=== PATIENT | female | born 2005 | race Caucasian/White ===

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

== ENCOUNTER 2023-03-10 13:58 | Emergency (ER) | payer BC ==
[2023-03-10 14:02] VITALS: TEMP 98.3
[2023-03-10] MEDS ORDERED: SODIUM CHLORIDE 0.9% 1,000 ML IV STA (14:27)
[2023-03-10] MEDS ORDERED: ASPIRIN 81 MG PO STA (14:27)
[2023-03-10] MEDS ORDERED: KETOROLAC 15 MG/ML 1 ML VIAL IVP STA (14:28)
[2023-03-10] MEDS ORDERED: LORazepam 0.5 MG TAB PO STA (14:28)
--- NOTE | 2023-03-10 14:51 | XR ---
EXAMINATION TYPE: XR chest 2V DATE OF EXAM: 03/10/2023 2:47 PM COMPARISON: Chest radiographs from 02/05/2018 TECHNIQUE: XR chest 2V Frontal and lateral views of the chest. CLINICAL INDICATION:Female, 17 years old with history of Chest Pain; FINDINGS: Lungs/Pleura: There is no evidence of pleural effusion, focal consolidation, or pneumothorax. Pulmonary vascularity: Unremarkable. Heart/mediastinum: Cardiomediastinal silhouette is unremarkable. Musculoskeletal: No acute osseous pathology. IMPRESSION: No acute cardiopulmonary disease/process.
--- NOTE | 2023-03-10 15:08 | ED ---
General Adult HPI - General Chief complaint: Chest Pain Stated complaint: Sent from urgent care Time Seen by Provider: 03/10/23 14:11 Source: patient, RN notes reviewed, old records reviewed Mode of arrival: ambulatory Limitations: no limitations - History of Present Illness Initial comments: Patient is a 17-year-old female who presents emergency Department complaining of chest pain, tightness associated with pleuritic shortness of breath. Does have a history of anxiety. Has a family history of cardiac disease as well as early- onset blood clots. Blood clots have occurred in her twin sister. She has been genetically tested and does not have the same gene makes her prone to blood clotting. However she does present over concern for this chest discomfort that started yesterday. It is worse with movement of her arms and torso. Worse on palpation. States it as substernal with radiation over bilateral ribs to both sides. Denies any trauma or fall. Endorses shortness of breath secondary to the pain, as it does hurt worse when she takes a deep breath in. Denies any nausea, vomiting. Does have a history of acid reflux and attempted to treat it with Tums without any relief. No known palliative or provocative factors. Denies any abdominal pain, diarrhea. Denies any fevers, chills, cough. Has no other acute complaints at this time. Presents over concern for chest pain. Does have a history of anxiety. Was sent from urgent care for further evaluation. - Related Data Previous Rx's Medication Instructions Recorded Acetaminophen Tab [Tylenol Tab] 1,000 mg PO Q6HR PRN #30 tablet 08/03/21 Ibuprofen [Motrin] 600 mg PO Q8HR PRN #30 tab 08/03/21 Simethicone [Gas-X] 125 mg PO AC-TID PRN #20 cap 08/03/21 Naproxen Sodium [Anaprox DS] 550 mg PO Q12HR PRN #30 tab 02/12/22 LORazepam [Ativan] 0.5 mg PO DAILY PRN 3 Days #3 tab 03/10/23 Allergies Allergy/AdvReac Type Severity Reaction Status Date / Time No Known Allergies Allergy Verified 03/10/23 14:02 Review of Systems ROS Statement: Those systems with pertinent positive or pertinent negative responses have been documented in the HPI. Review of Systems: CONST: Denies fever EYES: Denies blurry vision ENT: Denies nasal congestion C/V: Endorses chest pain RESP: Denies shortness of breath GI: Denies abdominal pain : Denies dysuria SKIN: Denies rash. MSK: Denies joint pain. NEURO: Denies headache ROS Other: All systems not noted in ROS Statement are negative. Past Medical History Past Medical History: No Reported History History of Any Multi-Drug Resistant Organisms: None Reported Past Surgical History: Appendectomy, Orthopedic Surgery Additional Past Surgical History / Comment(s): wisdom teeth, knee Past Anesthesia/Blood Transfusion Reactions: No Reported Reaction Past Psychological History: No Psychological Hx Reported Smoking Status: Never smoker Past Alcohol Use History: None Reported Past Drug Use History: None Reported - Past Family History Mother Family Medical History: AFIB, Blood Disorder Additional Family Medical History / Comment(s): inherited blood clotting disorder , prothrombin [id number], ovarian cysts Father Family Medical History: No Reported History General Exam - General Exam Comments Initial Comments: General: Appears anxious HEAD: Normal with no signs of head trauma. EYES: PERRLA, EOMI, conjunctiva normal, no discharge. ENT: Hearing grossly intact, normal oropharynx. RESPIRATORY: Clear breath sounds bilaterally. No wheezes, rales, or rhonchi. C/V: Tachycardic with a regular rhythm.. S1 and S2 auscultated, no edema, peripheral pulses 2+ and intact throughout. Chest pain is reproducible on palpation over the sternum and the ribs on the right. ABD: Abd is soft, nontender, nondistended EXT: Normal range of motion, no obvious deformity SKIN: No rashes or lesions observed on exposed skin. NEURO: Alert and oriented 4. Limitations: no limitations Course Vital Signs 03/10/23 03/10/23 03/10/23 14:00 14:14 14:30 Temperature 98.3 F Pulse Rate 123 H 76 65 Respiratory 20 15 16 Rate Blood Pressure 145/95 O2 Sat by Pulse 99 98 97 Oximetry 03/10/23 03/10/23 03/10/23 15:00 15:30 16:00 Temperature Pulse Rate 75 71 72 Respiratory 16 11 L 15 Rate Blood Pressure O2 Sat by Pulse 97 98 96 Oximetry 03/10/23 03/10/23 03/10/23 16:30 16:51 17:00 Temperature Pulse Rate 76 75 78 Respiratory 24 18 18 Rate Blood Pressure 153/81 153/81 O2 Sat by Pulse 97 98 97 Oximetry 03/10/23 17:30 Temperature Pulse Rate 78 Respiratory 12 Rate Blood Pressure 163/76 O2 Sat by Pulse 96 Oximetry Medical Decision Making - Medical Decision Making Was pt. sent in by a medical professional or institution ([facility], [facility], urgent care, hospital, or detention...) When possible be specific @ -Sent in by urgent care for further evaluation of a concern for symptoms Did you speak to anyone other than the patient for history (EMS, parent, family, police, friend...)? What history was obtained from this source @ -Spoke with patient's mother who eventually presents at bedside endorses the patient does have a history of anxiety and has been under more stress lately with school as well as family stressors. Did you review nursing and triage notes (agree or disagree)? Why? @ -I reviewed and agree with nursing and triage notes Were old charts reviewed (outside hosp., previous admission, EMS record, old EKG, old radiological studies, urgent care reports/EKG's, detention records)? Report findings @ -No old charts were reviewed Differential Diagnosis (chest pain, altered mental status, abdominal pain women, abdominal pain men, vaginal bleeding, weakness, fever, dyspnea, syncope, headache, dizziness, GI bleed, back pain, seizure, CVA, palpatations, mental health, musculoskeletal)? @ -Differential Chest Pain: Stable Angina, Anxiety, Unstable Angina, STEMI, NSTEMI Aortic Dissection, Pneumothorax, Musculoskeletal, Esophageal Spasm GERD, Cholecystitis, Pancreatitis, Zoster, this is not meant to be an all-inclusive list. EKG interpreted by me (3pts min.). @ -As above X-rays interpreted by me (1pt min.). @ -Chest x-ray reveals no obvious acute cardiopulmonary process. CT interpreted by me (1pt min.). @ -None done U/S interpreted by me (1pt. min.). @ -None done What testing was considered but not performed or refused? (CT, X-rays, U/S, labs)? Why? @ -None What meds were considered but not given or refused? Why? @ -None Did you discuss the management of the patient with other professionals (professionals i.e. [facility], [facility] [employer], lab, RT, psych nurse, social science research assistant, crop grain or livestock farmer, teacher, financial administration officer, foster care case manager)? Give summary @ -Spoke with Reji to evaluate the patient we discussed the patient's psychiatric clearance at this time. Patient has been followed. Discharged home with follow-up resources. Was smoking cessation discussed for >3mins.? @ -No Was critical care preformed (if so, how long)? @ -Yes, 35 minutes Were there social determinants of health that impacted care today? How? (Homelessness, low income, unemployed, alcoholism, drug addiction, transportation, low edu. Level, literacy, decrease access to med. care, fpc, rehab)? @ -No Was there de-escalation of care discussed even if they declined (Discuss DNR or withdrawal of care, Hospice)? DNR status @ -No What co-morbidities impacted this encounter? (DM, HTN, Smoking, COPD, CAD, Cancer, CVA, ARF, Chemo, Hep., AIDS, mental health diagnosis, sleep apnea, morbid obesity)? @ -None Was patient admitted / discharged? Hospital course, mention meds given and route, prescriptions, significant lab abnormalities, going to OR and other pertinent info. @ -Based on the patient's presentation and physical exam, I'm concerned for chest pain. Cannot rule out cardiopulmonary etiology at this time. We will obtain screening d-dimer as well as cardiac labs. Chest x-ray will be obtained. Does appear to be musculo skeletal nature but with her family history of blood clots and family as well as heart issues we will obtain this workup. She was in agreement this plan. I signs within acceptable limits of a mild tachycardia which has resolved by the time I evaluated the patient. Patient also has a history of anxiety which may be contributing to her current symptoms. She'll be symptomatically treated with oral aspirin, IV Toradol, oral Ativan as well as 1 L fluid bolus. EKG showed no signs of acute ischemia.Chest x-ray reveals no obvious acute cardio pulmonary process. Patient's labs are remarkable for an undetectable troponin. D-dimer is within normal limits. On reevaluation, patient states she still feels lightheaded with intermittent chest tightness and anxiety. We discussed her negative workup. Heart scores low, however patient's mother is at bedside at this time. We discussed at destiney th her symptoms aren't does sound somewhat anxiety and panic related. Suspect patient is under a lot of stress at home and has been feeling more depressed lately. Did have some suicidal ideations a few weeks ago. Is due to follow up with a therapist on Saturday. We discussed at length and we decided to obtain a second 3 hour troponin. Meanwhile we will provide the patient with a dose of antacid. We also have psych social work Yazmin evaluate the patient. Patient currently is not a danger to herself or others but she was in agreement this evaluation while we await the second troponin. Yazmin of EPS did evaluate the patient and was in agreement with safety for discharge with close follow-up with her therapist. We will provide the patient with 3 days of Ativan as well. Patient has been having increasing stressors, anxiety, depression. This stems from stress at home including patient's sister being involved with the recent school shooting and concern regarding this as wel l as family stressors. However patient is clear for discharge home at this time from a psychiatric standpoint. Spoke directly with Him regarding this. Repeat troponin is undetectable. I updated the patient. She is feeling improved. She'll be discharged home at this time with strict return prec autions. Heart Score is low at 0-1. I instructed the patient to follow up with their PCP in the next 1-3 days. I explained that the patient should return to the emergency department if they experience any worsening symptoms. Strict return precautions were discussed with the patient. The patient expressed understanding of these instructions. I answered all questions that the patient had. The patient was discharged home in good condition with their prescriptions and follow up information. Undiagnosed new problem with uncertain prognosis? @ -No Drug Therapy requiring intensive monitoring for toxicity (Heparin, Nitro, Insuli n, Cardizem)? @ -No Were any procedures done? @ -No Diagnosis/symptom? @ -Anxiety Acute, or Chronic, or Acute on Chronic? @ -Acute on chronic Uncomplicated (without systemic symptoms) or Complicated (systemic symptoms)? @ -Complicated Side effects of treatment? @ -none Exacerbation, Progression, or Severe Exacerbation] @ -no Poses a threat to life or bodily function? @ -no Diagnosis/symptom? @ -Atypical chest pain Acute, or Chronic, or Acute on Chronic? @ -Acute on chronic Uncomplicated (without systemic symptoms) or Complicated (systemic symptoms)? @ -Uncomplicated Side effects of treatment? @ -none Exacerbation, Progression, or Severe Exacerbation] @ -no Poses a threat to life or bodily function? @ -no - Lab Data Result diagrams: 03/10/23 14:57 03/10/23 14:57 Lab Results 03/10/23 03/10/23 03/10/23 Range/Units 14:57 14:57 14:57 WBC 4.1 (4.0-11.0) k/uL RBC 4.67 (3.80-5.40) m/uL Hgb 13.9 (11.4-16.0) gm/dL Hct 39.5 (34.0-46.0) % MCV 84.7 (80.0-100.0) fL MCH 29.7 (25.0-35.0) pg MCHC 35.1 (31.0-37.0) g/dL RDW 13.3 (11.5-15.5) % Plt Count 246 (150-450) k/uL MPV 7.1 Neutrophils % 56 % Lymphocytes % 36 % Monocytes % 5 % Eosinophils % 1 % Basophils % 0 % Neutrophils # 2.3 (1.3-7.7) k/uL Lymphocytes # 1.5 (1.0-4.8) k/uL Monocytes # 0.2 (0-1.0) k/uL Eosinophils # 0.0 (0-0.7) k/uL Basophils # 0.0 (0-0.2) k/uL PT 10.9 (9.0-12.0) sec INR 1.0 (<1.2) APTT 24.5 (22.0-30.0) sec D-Dimer 0.20 (<0.60) mg/L FEU Sodium 139 (137-145) mmol/L Potassium 4.0 (3.5-5.1) mmol/L Chloride 108 H (98-107) mmol/L Carbon Dioxide 23 (22-30) mmol/L Anion Gap 8 mmol/L BUN 12 (7-17) mg/dL Creatinine 0.65 (0.52-1.04) mg/dL Est GFR (CKD-EPI)AfAm >90 (>60 ml/min/1.73 sqM) Est GFR (CKD-EPI)NonAf >90 (>60 ml/min/1.73 sqM) Glucose 89 (74-99) mg/dL Calcium 9.0 (8.4-10.2) mg/dL Magnesium 2.1 (1.6-2.3) mg/dL Total Bilirubin 0.5 (0.2-1.3) mg/dL AST 21 (14-36) U/L ALT 20 (4-34) U/L Alkaline Phosphatase 44 (38-126) U/L Troponin I (0.000-0.034) ng/mL Total Protein 7.1 (6.3-8.2) g/dL Albumin 4.3 (3.5-5.0) g/dL 03/10/23 03/10/23 Range/Units 14:57 18:03 WBC (4.0-11.0) k/uL RBC (3.80-5.40) m/uL Hgb (11.4-16.0) gm/dL Hct (34.0-46.0) % MCV (80.0-100.0) fL MCH (25.0-35.0) pg MCHC (31.0-37.0) g/dL RDW (11.5-15.5) % Plt Count (150-450) k/uL MPV Neutrophils % % Lymphocytes % % Monocytes % % Eosinophils % % Basophils % % Neutrophils # (1.3-7.7) k/uL Lymphocytes # (1.0-4.8) k/uL Monocytes # (0-1.0) k/uL Eosinophils # (0-0.7) k/uL Basophils # (0-0.2) k/uL PT (9.0-12.0) sec INR (<1.2) APTT (22.0-30.0) sec D-Dimer (<0.60) mg/L FEU Sodium (137-145) mmol/L Potassium (3.5-5.1) mmol/L Chloride (98-107) mmol/L Carbon Dioxide (22-30) mmol/L Anion Gap mmol/L BUN (7-17) mg/dL Creatinine (0.52-1.04) mg/dL Est GFR (CKD-EPI)AfAm (>60 ml/min/1.73 sqM) Est GFR (CKD-EPI)NonAf (>60 ml/min/1.73 sqM) Glucose (74-99) mg/dL Calcium (8.4-10.2) mg/dL Magnesium (1.6-2.3) mg/dL Total Bilirubin (0.2-1.3) mg/dL AST (14-36) U/L ALT (4-34) U/L Alkaline Phosphatase (38-126) U/L Troponin I <0.012 <0.012 (0.000-0.034) ng/mL Total Protein (6.3-8.2) g/dL Albumin (3.5-5.0) g/dL - EKG Data -: EKG Interpreted by Me EKG Comments: 12-lead Electrocardiogram Interpretation Note EKG was reviewed and interpreted by myself. 12-lead ECG performed at 1407 is interpreted by me as revealing normal sinus rhythm at a rate of 75 beats per minute. [place] is normal. [place] interval is 179 ms, QRS duration is 94 ms, QTc is 402 ms.. There were no ST or T wave abnormalities to suggest myocardial ischemia or injury. R wave progression across the precordium was satisfactory. By my interpretation this EKG is non-diagnostic for acute ischemia. Disposition Clinical Impression: Atypical chest pain, Anxiety Disposition: HOME SELF-CARE Condition: Good Instructions (If sedation given, give patient instructions): Chest Pain (ED), Anxiety (ED) Prescriptions: LORazepam [Ativan] 0.5 mg PO DAILY PRN 3 Days #3 tab PRN Reason: Anxiety Is patient prescribed a controlled substance at d/c from ED?: Yes Referrals: Zaida Valentine DO [Primary Care Provider] - 1-2 days Time of Disposition: 18:48
[2023-03-10 15:14] LABS: Basophils % (A) 0 %; Eosinophils % (A) 1 %; HCT 39.5 % (34.0-46.0); HGB 13.9 gm/dL (11.4-16.0); Lymphocytes # (A) 1.5 k/uL (1.0-4.8); Lymphocytes % (A) 36 %; MCH 29.7 pg (25.0-35.0); MCHC 35.1 g/dL (31.0-37.0); MCV 84.7 fL (80.0-100.0); Mean Platelet Volume 7.1; Monocytes # (A) 0.2 k/uL (0-1.0); Monocytes % (A) 5 %; Neutrophils # (A) 2.3 k/uL (1.3-7.7); Neutrophils % (A) 56 %; Platelet Count 246 k/uL (150-450); RBC 4.67 m/uL (3.80-5.40); RDW 13.3 % (11.5-15.5); WBC 4.1 k/uL (4.0-11.0)
[2023-03-10 15:23] LABS: ALT 20 U/L (4-34); AST 21 U/L (14-36); African American GFR (CKD) >90 (>60 ml/min/1.73 sqM); Albumin 4.3 g/dL (3.5-5.0); Alkaline Phosphatase 44 U/L (38-126); Anion Gap 8 mmol/L; Blood Urea Nitrogen 12 mg/dL (7-17); Carbon Dioxide 23 mmol/L (22-30); Chloride 108 mmol/L (98-107); Glucose 89 mg/dL (74-99); Magnesium 2.1 mg/dL (1.6-2.3); Non-African American GFR(CKD) >90 (>60 ml/min/1.73 sqM); Sodium 139 mmol/L (137-145); Total Bilirubin 0.5 mg/dL (0.2-1.3); Total Protein 7.1 g/dL (6.3-8.2)
[2023-03-10 15:36] LABS: Partial Thromboplastin Time 24.5 sec (22.0-30.0); Prothrombin Time 10.9 sec (9.0-12.0)
[2023-03-10] MEDS ORDERED: PANTOPRAZOLE 40 MG/10 ML VIAL IVP STA (16:32)
[2023-03-10 19:26] VITALS: BP 127/67; PULSE 75; RESP 18
== END 2023-03-10 19:27 | disposition home or self-care (01) ==
LOC: EC 13:58
DX: F41.9 Anxiety disorder, unspecified (principal); R07.89 Other chest pain
CPT/HCPCS: 36415; 93005; 85379; 80053; 83735; 84484; 85025; 85610; 85730; 71046; 99285; 96374; 96375; 96361; J1885; C9113

== ENCOUNTER → 2023-06-03 | Outpatient (CLI) | payer BC ==
[2023-06-03 16:25] LABS: ALT 17 U/L (8-44); AST 13 U/L (13-35); Albumin 4.7 d/dL (3.8-4.9); Albumin/Globulin Ratio 1.96 Ratio (1.60-3.17); Alkaline Phosphatase 44 U/L (41-126); Calcium 9.3 mg/dL (8.7-10.3); Carbon Dioxide 24.2 mmol/L (21.6-31.8); Chloride 105 mmol/L (96-109); Chol/HDL Ratio 3.82 Ratio; Globulin 2.4 d/dL (1.6-3.3); Glucose 94 mg/dL (70-110); LDL Cholesterol,Calculated 103.9 mg/dL (0.0-131.0); Potassium 4.6 mmol/L (3.5-5.5); Sodium 139 mmol/L (135-145); T4, Free (Free Thyroxine) 1.24 ng/dL (0.83-1.43); Total Bilirubin 0.3 mg/dL (0.3-1.2); Total Protein 7.1 d/dL (6.2-8.2); VLDL Calculation 14.24 mg/dL (5.00-40.00)
[2023-06-03 16:45] LABS: Basophils # (A) 0.02 X 10*3/uL (0.00-0.10); Basophils % (A) 0.5 %; Eosinophils # (A) 0.03 X 10*3/uL (0.04-0.35); Eosinophils % (A) 0.8 %; HCT 41.9 % (37.2-46.3); HGB 14.1 d/dL (12.0-15.0); Lymphocytes # (A) 1.43 X 10*3/uL (0.90-5.00); Lymphocytes % (A) 38.8 %; MCH 29.8 pg (27.0-32.0); MCHC 33.7 d/dL (32.0-37.0); MCV 88.6 FL (80.0-97.0); Mean Platelet Volume 9.6 FL (9.5-12.2); Monocytes # (A) 0.21 X 10*3/uL (0.20-1.00); Monocytes % (A) 5.7 %; NRBC Per 100 WBC 0 X 10*3/uL (0.00-0.01); Neutrophils # (A) 1.99 X 10*3/uL (1.80-7.70); Neutrophils % (A) 53.9 %; Platelet Count 271 X 10*3/uL (140-440); RBC 4.73 X 10*6/uL (4.10-5.20); RDW 12.6 % (11.5-14.5); WBC 3.69 X 10*3/uL (4.50-10.00)
== END | disposition home or self-care (01) ==
LOC: LABWHC1 09:55
PROVIDERS: ATTEND Nurse Practitioner
DX: Z00.00 Encounter for general adult medical examination without abnormal findings (principal); Z51.81 Encounter for therapeutic drug level monitoring; Z79.899 Other long term (current) drug therapy
CPT/HCPCS: 36415; 80053; 80061; 82306; 83036; 84439; 84443; 85025

== ENCOUNTER 2023-08-08 00:11 | Emergency (ER) | payer BC ==
--- NOTE | 2023-08-08 01:11 | ED ---
General Adult HPI - General Source: patient, police Mode of arrival: ambulatory <Rj Swain - Last Filed: 08/08/23 01:09> <Zaida Harvey - Last Filed: 08/08/23 15:56> - General Chief complaint: Psychiatric Symptoms Stated complaint: Mental Health Time Seen by Provider: 08/08/23 00:26 - History of Present Illness Initial comments: Dictation was produced using [employer] dictation software. please excuse any grammatical, word or spelling errors. Chief Complaint: 18-year-old male presents for suicidal evaluation History of Present Illness: 18-year-old female she is brought in by [facility] for suicidal ideation. Shortness or called by patient's friend who is at the bedside states that she received attacks where she was concerned about her well- being. Patient allegedly taxied her that she does not want to do this anymore. Patient denies making any sort of detailed suicidal statements. Patient states that she is not suicidal. She does not have a plan. The ROS documented in this emergency department record has been reviewed and confirmed by me. Those systems with pertinent positive or negative responses have been documented in the HPI. All other systems are other negative and/or noncontributory. (Rj Swain) - Related Data Home Medications Medication Instructions Recorded Confirmed Albuterol Sulfate [Albuterol 1 - 2 puff PO RT-Q6H PRN 08/08/23 08/08/23 Sulfate Hfa] Ergocalciferol (Vitamin D2) 1,250 mcg PO FINLEY 08/08/23 08/08/23 [Drisdol (50,000 Iu)] Ferrous Sulfate [Feosol] 325 mg PO DAILY 08/08/23 08/08/23 Liraglutide [Saxenda] 2.4 mg SQ DAILY 08/08/23 08/08/23 Allergies Allergy/AdvReac Type Severity Reaction Status Date / Time No Known Allergies Allergy Verified 08/08/23 12:27 Review of Systems ROS Other: All systems not noted in ROS Statement are negative. <Rj Swain - Last Filed: 08/08/23 01:09> ROS Other: All systems not noted in ROS Statement are negative. <Zaida Harvey - Last Filed: 08/08/23 15:56> ROS Statement: Those systems with pertinent positive or pertinent negative responses have been documented in the HPI. Past Medical History Past Medical History: No Reported History Additional Past Medical History / Comment(s): POT's History of Any Multi-Drug Resistant Organisms: None Reported Past Surgical History: Appendectomy, Orthopedic Surgery Additional Past Surgical History / Comment(s): wisdom teeth, knee Past Anesthesia/Blood Transfusion Reactions: No Reported Reaction Past Psychological History: No Psychological Hx Reported Smoking Status: Never smoker Past Alcohol Use History: None Reported Past Drug Use History: None Reported - Past Family History Mother Family Medical History: AFIB, Blood Disorder Additional Family Medical History / Comment(s): inherited blood clotting disorder , prothrombin [id number], ovarian cysts Father Family Medical History: No Reported History <Rj Swain - Last Filed: 08/08/23 01:09> General Exam <Rj Swain - Last Filed: 08/08/23 01:09> - General Exam Comments Initial Comments: PHYSICAL EXAM: General Impression: Alert and oriented x3, not in acute distress HEENT: Normocephalic atraumatic, extra-ocular movements intact, pupils equal and reactive to light bilaterally, mucous membranes moist. Cardiovascular: Heart regular rate and rhythm Chest: Able to complete full sentences, no retractions, no tachypnea Abdomen: abdomen soft, non-tender, non-distended, no organomegaly Musculoskeletal: Pulses present and equal in all extremities, no peripheral edema Motor: no focal deficits noted Neurological: CN II-XII grossly intact, no focal motor or sensory deficits noted Skin: Intact with no visualized rashes Psych: Normal affect and mood (Rj Swain) Course Vital Signs 08/08/23 08/08/23 08/08/23 00:16 10:11 14:34 Temperature 98.5 F 97.6 F Pulse Rate 107 H 73 92 Respiratory 18 16 16 Rate Blood Pressure 139/83 115/76 121/78 O2 Sat by Pulse 98 98 98 Oximetry Medical Decision Making <Rj Swain - Last Filed: 08/08/23 01:09> <Zaida Harvey - Last Filed: 08/08/23 15:56> - Medical Decision Making Was pt. sent in by a medical professional or institution (, PA, AUT[employer] SET UP MECHANIC, urgent care, hospital, or long-term...) When possible be specific @ -No Did you speak to anyone other than the patient for history (EMS, parent, family, police, friend...)? What history was obtained from this source @ -No Did you review nursing and triage notes (agree or disagree)? Why? @ -I reviewed and agree with nursing and triage notes Were old charts reviewed (outside hosp., previous admission, EMS record, old EKG, old radiological studies, urgent care reports/EKG's, long-term records)? Report findings @ -No old charts were reviewed Differential Diagnosis (chest pain, altered mental status, abdominal pain women, abdominal pain men, vaginal bleeding, musculoskeletal, weakness, fever, dyspnea, syncope, headache, dizziness, GI bleed, back pain, seizure, CVA, palpatations, mental health)? @ -Differential Mental Health: Depression, anxiety, bipolar, psychosis, schizophrenia, borderline personality, situational depression, adjustment disorder, behavioral disorder, brain tumor, malingering, substance abuse, encephalopathy, medication reaction, dementia, hypothyroidism, degenerative neurologic disorder, lupus.... This is not meant to be all-inclusive list EKG interpreted by me (3pts min.). @ -None done X-rays interpreted by me (1pt min.). @ -None done CT interpreted by me (1pt min.). @ -None done U/S interpreted by me (1pt. min.). @ -None done What testing was considered but not performed or refused? (CT, X-rays, U/S, labs)? Why? @ -None What meds were considered but not given or refused? Why? @ -None Did you discuss the management of the patient with other professionals (professionals i.e. CORETTA Johnson, AUTOM[employer] SET UP MECHANIC, lab, RT, psych nurse, social services aide, divorce lawyer, teacher, public relations officer, hospice case manager)? Give summary @ -No Was smoking cessation discussed for >3mins.? @ -No Was critical care preformed (if so, how long)? @ -No Were there social determinants of health that impacted care today? How? (Homelessness, low income, unemployed, alcoholism, drug addiction, transportation, low edu. Level, literacy, decrease access to med. care, penitentiary, rehab)? @ -No Was there de-escalation of care discussed even if they declined (Discuss DNR or withdrawal of care, Hospice)? DNR status @ -No What co-morbidities impacted this encounter? (DM, HTN, Smoking, COPD, CAD, Cancer, CVA, ARF, Chemo, Hep., AIDS, mental health diagnosis, sleep apnea, morbid obesity)? @ -None Was patient admitted / discharged? Hospital course, mention meds given and r oute, prescriptions, significant lab abnormalities, going to OR and other pertinent info. @ -18-year-old female presents for evaluation of suicidal ideation. Vital signs stable. Patient is a medical complaints. Physical exam is benign. Patient medically cleared for psych evaluation Undiagnosed new problem with uncertain prognosis? @ -No Drug Therapy requiring intensive monitoring for toxicity (Heparin, Nitro, Insulin, Cardizem)? @ -No Were any procedures done? @ -No Diagnosis/symptom? Acute, or Chronic, or Acute on Chronic? Uncomplicated (without systemic symptoms) or Complicated (systemic symptoms)? @ -Suicidal ideation Side effects of treatment? @ -No Exacerbation, Progression, or Severe Exacerbation? @ -No Poses a threat to life or bodily function? How? (Chest pain, USA, LA, pneumonia, PE, COPD, DKA, ARF, appy, cholecystitis, CVA, Diverticulitis, Homicidal, Suicidal, threat to staff... and all critical care pts) @ -yes (Rj Swain) Patient evaluated by EPS. She does contract for safety. Patient will be discharged home at this time and is instructed to follow up with her psychiatrist. Return for any new or worsening symptoms. Patient discharged in stable condition (Zaida Harvey) - Lab Data Lab Results 08/08/23 08/08/23 Range/Units 03:11 03:19 Urine HCG, Qual Not Detected (Not Detectd) Urine Opiates Screen Not Detected (NotDetected) Ur Oxycodone Screen Not Detected (NotDetected) Urine Methadone Screen Not Detected (NotDetected) Ur Propoxyphene Screen Not Detected (NotDetected) Ur Barbiturates Screen Not Detected (NotDetected) U Tricyclic Antidepress Not Detected (NotDetected) Ur Phencyclidine Scrn Not Detected (NotDetected) Ur Amphetamines Screen Not Detected (NotDetected) U Methamphetamines Scrn Not Detected (NotDetected) U Benzodiazepines Scrn Not Detected (NotDetected) Urine Cocaine Screen Not Detected (NotDetected) U Marijuana (THC) Screen Not Detected (NotDetected) Disposition <Rj Swain - Last Filed: 08/08/23 01:09> Is patient prescribed a controlled substance at d/c from ED?: No Time of Disposition: 14:23 <Zaida Harvey - Last Filed: 08/08/23 15:56> Clinical Impression: Depression Disposition: HOME SELF-CARE Condition: Stable Instructions (If sedation given, give patient instructions): Depression (ED) Referrals: Les Mao [Primary Care Provider] - 1-2 days
[2023-08-08 03:54] LABS: Amphetamine Screen,Urine Not Detected (NotDetected); Barbiturate Screen,Urine Not Detected (NotDetected); Benzodiazepines Screen,Urine Not Detected (NotDetected); Cocaine Screen,Urine Not Detected (NotDetected); Methadone Screen, Urine Not Detected (NotDetected); Opiate Screen,Urine Not Detected (NotDetected); Oxycodone Screen, Urine Not Detected (NotDetected); Phencyclidine Screen,Urine Not Detected (NotDetected); Tricyclic Antidepressant,Urine Not Detected (NotDetected); Urn Cannabinoid Scrn Not Detected (NotDetected)
[2023-08-08 15:51] VITALS: BP 121/78; PULSE 92; RESP 16; TEMP 97.6
== END 2023-08-08 14:40 | disposition home or self-care (01) ==
LOC: EC 00:11
DX: F32.A Depression, unspecified (principal)
CPT/HCPCS: 80306; 81025; 82075; 99285

== ENCOUNTER → 2024-10-13 | Outpatient (CLI) | payer BC ==
[2024-10-13 14:24] VITALS: BP 126/80; PULSE 85; RESP 18; TEMP 97.9
--- NOTE | 2024-10-13 15:04 | P.SLEEP ---
History of Present Illness H&P Date: 10/13/24 Chief Complaint: KARRI 29-year-old female patient was referred to me due to concerns of obstructive sleep apnea. The patient has history of POTS and she has not episodes of syncope in the past. She was diagnosed with pots disease: Evaluation was done [facility] and the patient is currently on a combination of midodrine and propranolol. Based on her past disease, the patient has become essentially sedentary, not able to participate in strenuous exercise and the patient is to undergo bodybuilding and CrossFit training in the past. Over the years, she has gained some weight and currently she is on Saxenda and she has been able to lose some weight. Her weight is currently down by around 20 pounds over the past 1 year. Her current body mass index is 32.1. She lives with a female partner. She has been told to snore and quits breathing in the middle of the night. She reports significant dreams and does during dreams. No hallucinations. No reported cataplexy. No sleep paralysis. She has chronic anxiety and depression and she grinds her teeth and the patient wears a mouthguard for grinding. He goes to bed between 9 and 11 PM. She feels exhausted and she has to go to bed sometimes early. She is getting out of bed at around 6 AM in the morning. On weekends, she says between 8 PM and 11 AM. 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 No substance abuse. She vapes. No tobacco utilization. No excessive utilization of alcoholic beverages. No excessive utilization of caffeinated beverages. No nighttime shortness of breath or heartburn. She has woken up on few occasions with apneas and gasping for air. No nocturia. She has had occasional sleep talking and sleepwalking. She can easily take a nap if she is given the opportunity to do so. No history of any motor vehicle accident because of feeli ng drowsy or sleepy. She feels that she has to sleep long number of hours to get the freshman that she needs and sometimes she has slept up to 10 to 12 hours. Her current upper scores of 9. No head trauma. Review of Systems Constitutional: Reports daytime sleepiness, Reports fatigue, Reports weight loss Eyes: denies as per HPI, denies blurred vision, denies bulging eye, denies decreased vision, denies diplopia, denies discharge, denies dry eye, denies irritation, denies itching, denies pain, denies photophobia, denies loss of peripheral vision, denies loss of vision, denies tunnel vision/blind spots Ears: deny: decreased hearing, ear discharge, earache, tinnitus Ears, nose, mouth and throat: Reports as per HPI Breasts: absent: as per HPI, change in shape, gynecomastia, masses, nipple discharge, pain, skin changes, swelling Cardiovascular: Reports as per HPI Respiratory: Reports snoring Gastrointestinal: Reports as per HPI Genitourinary: Reports as per HPI Menstruation: Reports as per HPI Musculoskeletal: Reports as per HPI Musculoskeletal: absent: ankle pain, ankle stiffness, ankle swelling, as per HPI, elbow pain, elbow stiffness, elbow swelling, foot pain, foot stiffness, foot swelling, hand pain, hand stiffness, hand swelling, hip pain, hip stiffness, hip swelling, knee pain, knee stiffness, knee swelling, shoulder pain, shoulder stiffness, shoulder swelling, wrist pain, wrist stiffness, wrist swelling Integumentary: Reports as per HPI Neurological: Reports as per HPI Psychiatric: Reports as per HPI, Reports anxiety, Reports depression, Reports hypersomnia, Reports sleep disturbances Endocrine: Reports fatigue Hematologic/Lymphatic: Reports as per HPI Allergic/Immunologic: Reports as per HPI Past Medical History Past Medical History: No Reported History Additional Past Medical History / Comment(s): POT's, DEPRESSION/ANXIETY, BRONCHO SPASMS, CURRENTLY ON WEIGHTLOSS MEDICATION History of Any Multi-Drug Resistant Organisms: None Reported Past Surgical History: Appendectomy, Orthopedic Surgery Additional Past Surgical History / Comment(s): wisdom teeth, R knee Past Anesthesia/Blood Transfusion Reactions: No Reported Reaction Additional Past Anesthesia/Blood Transfusion Reaction / Comment(s): NAUSEA AND VOMITING IF DON'T HAVE MOTION SICKNESS PATCH Past Psychological History: Anxiety, Depression Smoking Status: Never smoker, Vaper Past Alcohol Use History: None Reported Past Drug Use History: None Reported - Past Family History Mother Family Medical History: AFIB, Blood Disorder, Hypertension, Thyroid Disorder Additional Family Medical History / Comment(s): inherited blood clotting disorder , prothrombin [id number], ovarian cysts, ANXIETY AND DEPRESSION. Father Family Medical History: No Reported History Additional Family Medical History / Comment(s): RESTLESS LEGS (PATIENTS TWIN ALSO HAS RESTLESS LEGS), ANXIETY AND DEPRESSION Medications and Allergies Home Medications Medication Instructions Recorded Confirmed Type Albuterol Sulfate [Albuterol 1 - 2 puff PO RT-Q6H PRN 08/08/23 08/08/23 History Sulfate Hfa] Ergocalciferol (Vitamin D2) 1,250 mcg PO FINLEY 08/08/23 08/08/23 History [Drisdol (50,000 Iu)] Ferrous Sulfate [Feosol] 325 mg PO DAILY 08/08/23 08/08/23 History Liraglutide [Saxenda] 2.4 mg SQ DAILY 08/08/23 08/08/23 History Allergies Allergy/AdvReac Type Severity Reaction Status Date / Time No Known Allergies Allergy Verified 08/08/23 12:27 Physical Exam Vitals: Vital Signs Temp Pulse Resp BP Pulse Ox 10/13/24 14:23 97.9 F 85 18 126/80 97 The patient appeared well nourished and normally developed. Vital signs as documented. Head exam is unremarkable. No scleral icterus or corneal arcus noted. Neck is without jugular venous distension, thyromegaly, or carotid bruits. Carotid upstrokes are brisk bilaterally. Lungs are clear to auscultation and percussion. Cardiac exam reveals the PMI to be normally sized and situated. Rhythm is regular. First and second heart sounds normal. No murmurs, rubs or gallops. Abdominal exam reveals normal bowel sounds, no masses, no organomegaly and no aortic enlargement. Extremities are nonedematous and both femoral and pedal pulses are normal. Examination of the skin revealed no evidence of significant rashes, suspicious appearing nevi or other concerning lesions. Neurologically, the patient is awake and alert and the patient does not have any focal neurological deficit. Cranial nerves are essentially intact. Assessment and Plan Plan: Chronic hypersomnia/fatigue with an Alexandria score of 9, currently under investigation. Consider underlying possibility of obstructive sleep apnea as the patient has snoring and o she has been witnessed to have occasional apneas. Narcolepsy is considered to be less likely. Grinding of the teeth, and the patient wears a bite guard Occasional sleepwalking/talking Chronic anxiety/depression Dreams with occasional nightmares as the patient is taking beta-blockers Pots disease, currently on a combination of midodrine and propranolol Chronic anxiety Chronic depression Fluctuation of body weight and current body mass index is 32.1 and the patient is currently on Saxenda Plan Continue same medications Maintain good sleep hygiene measures Screen the patient for obstructive sleep apnea. The patient is going to be asked to come into the sleep center to undergo a screening polysomnography. If the AHI is less than 10, will keep the patient for secondary MSLT to objectively quantify the severity of her hypersomnia and rule out narcolepsy. Continue Saxenda Encouraged further weight loss Will continue to follow and make further recommendations based on her progress. Sleep Note - Sleep Data ESS Total: 9 - Sleep Note Sleep Note: Temperature: 97.9 F Pulse Rate: 85 Respiratory Rate: 18 Blood Pressure: 126/80 SpO2: 97 Height: Weight: BMI: Neck Circumference: 15.2
== END ==
LOC: 3 N SLEEP 13:42
PROVIDERS: ATTEND Internal Medicine Critical Care Medicine
DX: G47.10 Hypersomnia, unspecified (principal); R53.82 Chronic fatigue, unspecified; G47.419 Narcolepsy without cataplexy; G47.63 Sleep related bruxism; F51.3 Sleepwalking [somnambulism]; F41.9 Anxiety disorder, unspecified; F32.A Depression, unspecified; F51.5 Nightmare disorder; G90.A Postural orthostatic tachycardia syndrome [POTS]
CPT/HCPCS: 99211

== ENCOUNTER 2024-11-29 19:37 | Outpatient (CLI) | payer BC ==
[2024-11-30 19:26] LABS: Urine Alcohol Negative (Negative); Urine Barbiturate Negative (Negative); Urine Cocaine Negative (Negative); Urine Methadone Negative (Negative); Urine Opiates Negative (Negative); Urine Phencyclidine Negative (Negative)
--- NOTE | 2024-12-08 12:09 | P.PCN ---
Date of Procedure: 11/29/24 Operative Findings: Polysomnography report Date of service is 11/29/2024 History 19-year-old female patient was referred to me due to concerns of obstructive sleep apnea. The patient has history of POTS and she has not episodes of syncope in the past. She was diagnosed with pots disease: Evaluation was done [facility] and the patient is currently on a combination of midodrine and propranolol. Based on her past disease, the patient has become essentially sedentary, not able to participate in strenuous exercise and the patient is to undergo bodybuilding and CrossFit training in the past. Over the years, she has gained some weight and currently she is on Saxenda and she has been able to lose some weight. Her weight is currently down by around 20 pounds over the past 1 year. Her current body mass index is 32.1. She lives with a female partner. She has been told to snore and quits breathing in the middle of the night. She reports significant dreams and does during dreams. No hallucinations. No reported cataplexy. No sleep paralysis. She has chronic anxiety and depression and she grinds her teeth and the patient wears a mouthguard for grinding. He goes to bed between 9 and 11 PM. She feels exhausted and she has to go to bed sometimes early. She is getting out of bed at around 6 AM in the morning. On weekends, she says between 8 PM and 11 AM. 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 No substance abuse. She vapes. No tobacco utilization. No excessive utilization of alcoholic beverages. No excessive utilization of caffeinated beverages. No nighttime shortness of breath or heartburn. She has woken up on few occasions w ith apneas and gasping for air. No nocturia. She has had occasional sleep talking and sleepwalking. She can easily take a nap if she is given the opportunity to do so. No history of any motor vehicle accident because of feeling drowsy or sleepy. She feels that she has to sleep long number of hours to get the freshman that she needs and sometimes she has slept up to 10 to 12 hours. Her current upper scores of 9. No head trauma. Physical findings Weight is down 13 pounds with a body mass index of 32.4 Technical description The patient was studied using a standard complex polysomnography protocol that included recording of the Lead II EKG, Central, occipital and frontal EEG, right and left outer canthus EOG, submental EMG, right and left anterior tibialis EMG, respiratory airflow by thermocouple and or pressure/flow transducer, respiratory efforts by abdominal and thoracic PVDF belts, oxygen saturation by cable oximetry. Position by observation synchronized the PSG. Equipment used: [employer]. Sleep architecture Sleep architecture The total recording duration was 463.5 minutes. The total sleep time was 419.0 minutes. The wake after sleep onset time was 14 minutes. Overall sleep efficiency was 90.4%. Latency to sleep onset was 30 minutes. Latency to REM sleep was 103.0 minutes. Sleep architecture was characterized by 0.8% stage I, 48.4% stage II, 24.9% stage III and a total of 25.9% REM sleep. The total arousal index was 2.9 Respiratory analysis The sleep study showed no obstructive respiratory events and the patient is AHI was 0. No central events were noted. The patient was able to maintain an oxygen saturation above 90% and there was no significant desaturations. Lowest pulse ox was recorded to be at 92%. Sleep continuity summary There was a total of 20 arousals with an arousal index of 2.9. Respiratory arousal index was 0 Periodic limb movement summary No significant periodic pneumonias identified Cardiac summary Average heart rate was 62 with a minimum heart rate of 57 and a maximum heart rate of 69, normal sinus rhythm. Assessment No evidence of any sleep breathing disorder. The patient has an AHI of 0. No nocturnal oxygen desaturations. No. Likely movement activity. There is some abnormalities in sleep architecture with over representation of stage III sleep. Overall sleep efficiency was within normal limits. Chronic hypersomnia/fatigue with an Bryan score of 9 Grinding of the teeth, and the patient wears a bite guard Occasional sleepwalking/talking Chronic anxiety/depression Dreams with occasional nightmares as the patient is taking beta-blockers Pots disease, currently on a combination of midodrine and propranolol Chronic anxiety Chronic depression Fluctuation of body weight and current body mass index is 32.1 and the patient is currently on Saxenda Plan The sleep study is negative for any significant abnormalities. Some exacerbation of stage III sleep was noted and this could be drug-induced. Otherwise, the sleep efficiency and rest of the sleep parameters in the polysomnography was within normal limits. Continue same medications Maintain good sleep hygiene measures Continue Saxenda Encouraged further weight loss Proceed with MSLT MSLT report Date of service is 11/30/2024 Technical description The MSLT followed a full night polysomnography during which there was more than 6 hours of sleep. The electrographic variables included EEG, EMG, urology and EKG. The patient was monitored throughout 520 minutes unfortunately his to sleep at 2-hour intervals. For each nap, the patient was allowed 20 minutes to fall asleep. Once asleep, the patient was awakened after 15 minutes. Between naps, the patient was Alert. Sleep latency of 20 minutes indicated no sleep occurred. Results The patient was able to generate sleep for the first 4 naps. No sleep and nap #5. The sleep latency for nap #1 was 12.5 minutes, nap #2 was 9.5 minutes, nap #3 was 9 minutes, nap #4 was 15.5 minutes and nap #5 was 20 minutes. The mean sleep latency for 5 naps was 13.3 minutes. No REM sleep identified Assessment Idiopathic hypersomnia. PSG was negative. MSLT not suggestive of narcolepsy Plan Follow-up in the office. Would benefit from stimulant therapy as the patient is excessively sleepy during the day and her functionality has been affected. Will start the patient on Provigil and monitor her clinical progress. Will continue looking for any other alternative causes for chronic sleepiness/fatigue.
== END 2024-11-30 17:15 | disposition home or self-care (01) ==
LOC: 3 N SLEEP 19:37
PROVIDERS: ATTEND Internal Medicine Critical Care Medicine
DX: G47.33 Obstructive sleep apnea (adult) (pediatric) (principal); G47.10 Hypersomnia, unspecified; G90.A Postural orthostatic tachycardia syndrome [POTS]; F51.3 Sleepwalking [somnambulism]; F41.9 Anxiety disorder, unspecified; F32.A Depression, unspecified; G47.63 Sleep related bruxism
CPT/HCPCS: 80306; 95805; 95810